=== PATIENT | female | born 1965 | race African-American/Black ===

== ENCOUNTER 2018-03-20 08:52 | Emergency (ER) | payer OTHER ==
[~2018-03-20] VITALS: Ht 157.5 cm; Wt 68.0 kg
[2018-03-20] MEDS ORDERED: ACETAMINOPHEN 325 MG TABLET PO ONE (09:00)
[2018-03-20] MEDS ORDERED: ACETAMINOPHEN 325 MG TABLET ONE (09:01)
--- NOTE | 2018-03-20 09:46 | NUR ---
PATIENT WAS SEEN BY MD FOR C/O KNEE PAIN AFTER FALL. XRAYS DONE. KIRA WRAP APPLIED TO KNEE. DC AND FOLLOW UP INSTRUCTIONS GIVEN AND EXPLAINED TO PATIENT WHO STATES SHE UNDERSTANDS ALL INSTRUCTIONS.
[2018-03-20 09:49] VITALS: BP 156/89
== END 2018-03-20 10:07 | disposition home or self-care (01) ==
LOC: ER 08:52
DX: S80.02XA Contusion of left knee, initial encounter (principal); S80.12XA Contusion of left lower leg, initial encounter; I10 Essential (primary) hypertension; W01.0XXA Fall on same level from slipping, tripping and stumbling without subsequent striking against object, initial encounter; Y93.89 Activity, other specified; Y92.89 Other specified places as the place of occurrence of the external cause; Y99.8 Other external cause status
CPT/HCPCS: A4663